=== PATIENT | female | born 1955 | race Two or more races ===

== ENCOUNTER 2023-05-11 09:30 | Inpatient (IN) | payer OTHER, BC ==
[2023-05-02 18:01] VITALS: BMI 28.3
[2023-05-11] MEDS ORDERED: BUPIVACAINE LIPOSOME/PF (EXPAREL) 266 MG/20 ML VIAL ONE (13:28)
[2023-05-11] MEDS ORDERED: MIDAZOLAM HCL 2 MG/2 ML SINGLE DOSE VIAL ONE (13:28)
[2023-05-11] MEDS ORDERED: BUPIVACAINE HCL/PF 0.5% (5 MG/ML) 30 ML VIAL IJ ONE (13:28)
[2023-05-11] MEDS ORDERED: ACETAMINOPHEN INJECTION 100 ML IVPB ONE (13:28)
[2023-05-11] MEDS ORDERED: ONDANSETRON 4 MG/2 ML VIAL IVPUSH PRN ×2 (14:18→19:41)
[2023-05-11] MEDS ORDERED: ACETAMINOPHEN 325 MG TABLET (FP) PO PRN (14:18)
[2023-05-11] MEDS ORDERED: oxyCODONE HCL 5 MG TABLET PO PRN (14:18)
[2023-05-11] MEDS ORDERED: LACTATED RINGERS SOLUTION 1,000 ML IV SCH ×2 (14:30→19:45)
[2023-05-11] MEDS ORDERED: ceFAZolin SODIUM 1 GM VIAL ONE ×4 (14:43→18:27)
[2023-05-11] MEDS ORDERED: VANCOMYCIN 1,000 MG VIAL (RESTRICTED TO ID ONLY) ONE (14:43)
[2023-05-11] MEDS ORDERED: PROPOFOL 40 ML ONE (14:44)
[2023-05-11] MEDS ORDERED: PROPOFOL 20 ML ONE ×5 (15:20→18:05)
[2023-05-11] MEDS ORDERED: TRANEXAMIC ACID 1000 MG/10 ML VIAL ONE (15:37)
[2023-05-11] MEDS ORDERED: HYDROmorphone HCL/PF 1 MG/ML VIAL ONE (18:42)
[2023-05-11] MEDS ORDERED: PROMETHAZINE HCL 25 MG/1 ML VIAL IVPB ONE (19:30)
[2023-05-11] MEDS ORDERED: KETOROLAC TROMETHAMINE 30 MG/1 ML VIAL IVPUSH PRN (19:40)
[2023-05-11] MEDS ORDERED: MAGNESIUM HYDROX 2400MG/30ML ORAL SUSPENSION 30 ML CUP PO PRN (19:41)
[2023-05-11] MEDS ORDERED: MAG HYDROX/AL HYDROX/SIMETH 30 ML UNIT-DOSE CUP PO PRN (19:41)
[2023-05-11] MEDS ORDERED: PROMETHAZINE HCL 25 MG/1 ML VIAL ONE (19:45)
[2023-05-11] MEDS: SENNOSIDES/DOCUSATE COMBO (SENNA PLUS) TABLET (UD) PO SCH (21:54)
[2023-05-11] MEDS: CELECOXIB 200 MG CAPSULE PO SCH (21:55)
[2023-05-11] MEDS: ASPIRIN COATED 81 MG TABLET.EC PO SCH (21:57)
[2023-05-11] MEDS: GABAPENTIN 300 MG CAPSULE PO SCH (22:00)
[2023-05-11] MEDS: oxyCODONE HCL 5 MG TABLET PO PRN (23:35)
[2023-05-12] MEDS: CEFAZOLIN SODIUM 2 GM in DEXTROSE 5%-WATER 100 ML IVPB SCH ×4 (01:50→18:21)
[2023-05-12] MEDS: oxyCODONE HCL 5 MG TABLET PO PRN ×3 (05:10→18:40)
[2023-05-12 08:15] LABS: HEMATOCRIT 37.3 % (32.4-45.2); HEMOGLOBIN 12.1 G/dL (10.7-15.3); MCH 31.4 pg (25.7-33.7); MCHC 32.5 g/dl (32.0-36.0); MEAN CELL VOLUME 96.5 fl (80-96); MEAN PLT VOLUME 9.1 fl (7.5-11.1); PLATELET COUNT 218.6 10^3/uL (134-434); RBC 3.87 10^6/uL (3.60-5.2); RDW 13.1 % (11.6-15.6); WHITE BLOOD COUNT 10.5 10^3/uL (4.0-10.8)
[2023-05-12 08:39] LABS: CALCIUM 8.8 mg/dl (8.5-10.1); POTASSIUM 3.9 mmol/L (3.5-5.1)
[2023-05-12] MEDS: CELECOXIB 200 MG CAPSULE PO SCH (09:29)
[2023-05-12] MEDS: ASPIRIN COATED 81 MG TABLET.EC PO SCH ×2 (09:29→21:51)
[2023-05-12] MEDS: PANTOPRAZOLE 40 MG TABLET PO SCH (09:29)
[2023-05-12] MEDS: GABAPENTIN 300 MG CAPSULE PO SCH ×2 (09:29→21:49)
[2023-05-12] MEDS: LISINOPRIL 20 MG TABLET PO SCH (09:34)
[2023-05-12] MEDS: NEBIVOLOL 10 MG TABLET (FP) PO SCH (09:34)
[2023-05-12] MEDS: SENNOSIDES/DOCUSATE COMBO (SENNA PLUS) TABLET (UD) PO SCH ×2 (09:34→21:51)
[2023-05-12] MEDS: HYDROCHLOROTHIAZIDE 12.5 MG CAPSULE (FP) PO SCH (09:35)
[2023-05-12] MEDS ORDERED: PATIENT'S OWN MEDICATION (NON-FORMULARY) (Lisinopril/Hydrochlorothiazide [Lisinopril-Hctz PO SCH (10:00)
[2023-05-12] MEDS ORDERED: CELECOXIB 100 MG CAPSULE PO SCH (21:09)
[2023-05-12] MEDS: CELECOXIB 100 MG CAPSULE PO SCH (21:49)
[2023-05-12] MEDS: ROSUVASTATIN CA 10 MG TABLET PO SCH (21:50)
[2023-05-13] MEDS: CEFAZOLIN SODIUM 2 GM in DEXTROSE 5%-WATER 100 ML IVPB SCH ×3 (00:56→12:34)
[2023-05-13 08:28] LABS: HEMATOCRIT 33.4 % (32.4-45.2); MCH 31.7 pg (25.7-33.7); MEAN CELL VOLUME 95.9 fl (80-96); MEAN PLT VOLUME 9.1 fl (7.5-11.1); PLATELET COUNT 184.9 10^3/uL (134-434); RBC 3.48 10^6/uL (3.60-5.2); RDW 13.5 % (11.6-15.6); WHITE BLOOD COUNT 9.4 10^3/uL (4.0-10.8)
[2023-05-13 08:47] LABS: CALCIUM 8.6 mg/dl (8.5-10.1); CREATININE 0.9 mg/dl (0.6-1.3); POTASSIUM 3.9 mmol/L (3.5-5.1)
[2023-05-13] MEDS: LISINOPRIL 20 MG TABLET PO SCH (09:20)
[2023-05-13] MEDS: ASPIRIN COATED 81 MG TABLET.EC PO SCH ×2 (09:20→21:06)
[2023-05-13] MEDS: GABAPENTIN 300 MG CAPSULE PO SCH ×2 (09:20→21:06)
[2023-05-13] MEDS: NEBIVOLOL 10 MG TABLET (FP) PO SCH (09:21)
[2023-05-13] MEDS: HYDROCHLOROTHIAZIDE 12.5 MG CAPSULE (FP) PO SCH (09:21)
[2023-05-13] MEDS: CELECOXIB 100 MG CAPSULE PO SCH ×2 (09:21→21:05)
[2023-05-13] MEDS: PANTOPRAZOLE 40 MG TABLET PO SCH (09:22)
[2023-05-13] MEDS: oxyCODONE HCL 5 MG TABLET PO PRN ×3 (09:22→18:50)
[2023-05-13] MEDS: SENNOSIDES/DOCUSATE COMBO (SENNA PLUS) TABLET (UD) PO SCH ×3 (09:43→21:06)
[2023-05-13] MEDS: ROSUVASTATIN CA 10 MG TABLET PO SCH (21:05)
[2023-05-14] MEDS: HYDROCHLOROTHIAZIDE 12.5 MG CAPSULE (FP) PO SCH (09:28)
[2023-05-14] MEDS: PANTOPRAZOLE 40 MG TABLET PO SCH (09:28)
[2023-05-14] MEDS: LISINOPRIL 20 MG TABLET PO SCH (09:28)
[2023-05-14] MEDS: GABAPENTIN 300 MG CAPSULE PO SCH (09:28)
[2023-05-14] MEDS: SENNOSIDES/DOCUSATE COMBO (SENNA PLUS) TABLET (UD) PO SCH ×3 (09:28→21:29)
[2023-05-14] MEDS: ASPIRIN COATED 81 MG TABLET.EC PO SCH ×2 (09:28→21:26)
[2023-05-14] MEDS: CELECOXIB 100 MG CAPSULE PO SCH ×2 (09:28→21:26)
[2023-05-14] MEDS: NEBIVOLOL 10 MG TABLET (FP) PO SCH (09:28)
[2023-05-14] MEDS: oxyCODONE HCL 5 MG TABLET PO PRN (09:29)
[2023-05-14] MEDS: ROSUVASTATIN CA 10 MG TABLET PO SCH (21:26)
[2023-05-15 08:28] LABS: HEMATOCRIT 36.6 % (32.4-45.2); HEMOGLOBIN 12.5 G/dL (10.7-15.3); MCH 32.6 pg (25.7-33.7); MCHC 34.2 g/dl (32.0-36.0); MEAN CELL VOLUME 95.3 fl (80-96); MEAN PLT VOLUME 9.6 fl (7.5-11.1); PLATELET COUNT 243.7 10^3/uL (134-434); RBC 3.84 10^6/uL (3.60-5.2); RDW 13.1 % (11.6-15.6); WHITE BLOOD COUNT 9.5 10^3/uL (4.0-10.8)
[2023-05-15 08:30] LABS: CREATININE 0.7 mg/dl (0.6-1.3); POTASSIUM 4.3 mmol/L (3.5-5.1)
[2023-05-15] MEDS: SENNOSIDES/DOCUSATE COMBO (SENNA PLUS) TABLET (UD) PO SCH (09:11)
[2023-05-15] MEDS: CELECOXIB 100 MG CAPSULE PO SCH (09:11)
[2023-05-15] MEDS: ASPIRIN COATED 81 MG TABLET.EC PO SCH (09:11)
[2023-05-15] MEDS: PANTOPRAZOLE 40 MG TABLET PO SCH (09:11)
[2023-05-15] MEDS: oxyCODONE HCL 5 MG TABLET PO PRN (09:12)
[2023-05-15] MEDS: HYDROCHLOROTHIAZIDE 12.5 MG CAPSULE (FP) PO SCH (09:14)
[2023-05-15] MEDS: NEBIVOLOL 10 MG TABLET (FP) PO SCH (09:14)
[2023-05-15] MEDS: LISINOPRIL 20 MG TABLET PO SCH (09:14)
[2023-05-15 14:51] VITALS: BP 128/74; PULSE 69; RESP 18; TEMP 98.1
== END 2023-05-15 15:49 | disposition home or self-care (01) | DRG 468 ==
LOC: EDSTATUS 09:30 → FM/S 10:42
PROVIDERS: ADMIT Orthopaedic Surgery Orthopaedic Surgery of the Spine; ATTEND Orthopaedic Surgery Orthopaedic Surgery of the Spine
PROC: 0SRC0J9 Replacement of Right Knee Joint with Synthetic Substitute, Cemented, Open Approach (ICD-10-PCS; 2023-05-11)
PROC: 0SBC0ZZ Excision of Right Knee Joint, Open Approach (ICD-10-PCS; 2023-05-11)
PROC: 0SPC0JZ Removal of Synthetic Substitute from Right Knee Joint, Open Approach (ICD-10-PCS; principal; 2023-05-11 15:08)
DX: T84.032A Mechanical loosening of internal right knee prosthetic joint, initial encounter (principal); T84.012A Broken internal right knee prosthesis, initial encounter; I10 Essential (primary) hypertension; E78.5 Hyperlipidemia, unspecified; Y83.8 Other surgical procedures as the cause of abnormal reaction of the patient, or of later complication, without mention of misadventure at the time of the procedure; Y79.2 Prosthetic and other implants, materials and accessory orthopedic devices associated with adverse incidents
CPT/HCPCS: 36415; 73560-TC-RT-FY; 80048; 85027; 88307-TC; 88331-TC; 94760; 97010-GP; 97116-GP; 97162-GP; C1713; C1776